=== PATIENT | female | born 1970 | race Hispanic/Latino ===

== ENCOUNTER 2021-03-10 10:18 | Inpatient (IN) | payer OTHER ==
[~2021-03-10] VITALS: Ht 160 cm; Wt 119.8 kg
[2021-03-10] MEDS ORDERED: ONDANSETRON 4MG INJ ONE (10:34)
[2021-03-10] MEDS ORDERED: 0.9%NACL 1000ML 1,000 ML IV ONE (10:35)
[2021-03-10 10:43] LABS: BASOPHILS % (AUTO) 0.2 % (0.0-5.0); HEMATOCRIT 41.2 % (36-48); LYMPHOCYTES % (AUTO) 5.8 % (21.0-51.0); MEAN CORPUSCULAR HEMOGLOBIN 30.8 pg (27.0-33.0); MEAN CORPUSCULAR HGB CONC 35.2 g/dL (32.0-36.0); MEAN CORPUSCULAR VOLUME 87.5 fL (79-99); MONOCYTES % (AUTO) 6.5 % (3.0-13.0); NEUTROPHILS % (AUTO) 86.9 % (40.0-77.0); PLATELET COUNT (AUTO) 270 K/uL (130-400); RED BLOOD CELL COUNT(AUTO) 4.71 MIL/uL (4.00-5.50); RED CELL DISTRIBUTION WIDTH 13.2 % (11.0-15.5); WHITE BLOOD COUNT (AUTO) 20.7 K/uL (4.8-10.8)
[2021-03-10] MEDS ORDERED: ZOSYN 3.375GM+NS 50ML 50 ML ONE (10:48)
[2021-03-10] MEDS ORDERED: 0.9%NACL 50ML 50 ML IV ONE (10:49)
[2021-03-10 10:51] LABS: CARBON DIOXIDE 24 mmol/L (21-32); CREATININE 0.9 mg/dL (0.5-1.5); GLOMERULAR FILTR. RATE CALC 70 mL/min (>60); GLUCOSE,RANDOM 133 mg/dL (70-105); POTASSIUM 3.7 mmol/L (3.5-5.1); SODIUM SERUM 126 mmol/L (136-145); UREA NITROGEN, BLOOD 9 mg/dL (7-18)
[2021-03-10 10:55] LABS: ALANINE AMINOTRANSFERASE 46 U/L (12-78); ALBUMIN 3.5 g/dL (3.5-5.0); ASPARTATE AMINOTRANSFERASE 22 U/L (10-37); BILIRUBIN,TOTAL 0.9 mg/dL (0.2-1.0); CHLORIDE 90 mmol/L (101-111)
[2021-03-10] MEDS ORDERED: ZOSYN IV SCH (11:00)
[2021-03-10] MEDS: ZOSYN 3.375GM+NS 50ML 50 ML IV SCH ×2 (11:00→20:28)
[2021-03-10] MEDS ORDERED: ONDANSETRON 4MG INJ IVP ONE (11:00)
[2021-03-10] MEDS ORDERED: LACTATED RINGERS 1000ML 1,000 ML IV ONE (11:00)
[2021-03-10] MEDS ORDERED: [UNRECOGNIZED DRUG - OTHER] IV SCH (11:00)
[2021-03-10 11:01] LABS: LIPASE < 50 U/L (114-286)
[2021-03-10 11:31] LABS: APPEARANCE,URINE Clear (CLEAR); BILIRUBIN,URINE Negative (NEGATIVE); COLOR,URINE Yellow (YELLOW); GLUCOSE, URINE (UA) Negative (NEGATIVE); KETONES,URINE Negative (NEGATIVE); LEUKOCYTE ESTERASE ,URINE Negative (NEGATIVE); NITRATE,URINE Negative (NEGATIVE); OCCULT BLOOD,URINE Moderate (NEGATIVE); PH,URINE 6.5 (5.0-8.0); PROTEIN,URINE POS 1+ mg/dL (NEGATIVE)
[2021-03-10 11:54] LABS: BACTERIA,URINE Rare /HPF (None Seen); SQUAMOUS EPITHELIAL CELL,UR Few /HPF (0-2); WBC,URINE None Seen /HPF (0-1)
[2021-03-10] MEDS ORDERED: 0.9%NACL 1000ML 1,000 ML IV SCH (13:00)
[2021-03-10] MEDS ORDERED: MORPHINE 4 MG SYG ONE (13:10)
[2021-03-10 13:16] LABS: CREATININE,URINE RANDOM 36 mg/dL (30-135); SODIUM,URINE RANDOM 17 mmol/l (40-220)
[2021-03-10] MEDS ORDERED: MORPHINE 2 MG SYG IVP PRN (13:30)
[2021-03-10 13:31] LABS: CREATININE 0.9 mg/dL (0.5-1.5); POTASSIUM 3.6 mmol/L (3.5-5.1)
[2021-03-10 13:34] LABS: URIC ACID 6.4 mg/dL (2.6-7.2)
[2021-03-10] MEDS ORDERED: LEVO50TA11 PO (14:37)
[2021-03-10] MEDS ORDERED: LISI5TAB21 PO (14:37)
[2021-03-10 18:45] VITALS: BP 154/87
[2021-03-10] MEDS ORDERED: ACETAMINOPHEN 325 MG TAB ONE (19:12)
[2021-03-10] MEDS ORDERED: ACETAMINOPHEN 325 MG TAB PO PRN (19:30)
[2021-03-10 20:19] VITALS: BP 131/89
[2021-03-10] MEDS ORDERED: SUCCINYLCHOLINE 200MG/10ML SYR ONE (22:20)
[2021-03-10] MEDS ORDERED: LIDOCAINE HCL MPF 1% 5ML VIAL ONE (22:20)
[2021-03-10] MEDS ORDERED: ROCURONIUM 10MG/1ML SYR 10 MG/ML ML ONE (22:21)
[2021-03-10] MEDS ORDERED: FENTANYL CITRATE PF 50 MCG/1 ML 2ML VIAL ONE (22:21)
[2021-03-10] MEDS ORDERED: PROPOFOL 10 MG/ML 20ML VIAL IV ONE (22:21)
[2021-03-10] MEDS ORDERED: MIDAZOLAM HCL 1 MG/ML 2ML VIAL ONE (22:21)
[2021-03-10] MEDS ORDERED: BUPIVACAINE/PF 0.5% 30ML VIAL ONE (22:43)
[2021-03-10] MEDS ORDERED: NEOSTIGMINE 5MG/5ML SYR IV ONE (23:53)
[2021-03-10] MEDS ORDERED: GLYCOPYRROLATE 1 MG/5 ML SYRINGE ONE (23:53)
[2021-03-11] VITALS (20 sets, daily range): BP systolic 112–147; BP diastolic 54–88
[2021-03-11] MEDS ORDERED: ONDANSETRON 4MG INJ IVP PRN (00:30)
[2021-03-11] MEDS ORDERED: MORPHINE 4 MG SYG IV PRN (00:30)
[2021-03-11] MEDS: TRAMADOL HCL 50 MG TABLET PO SCH ×5 (02:07→23:59)
[2021-03-11] MEDS: LACTATED RINGERS 1000ML 1,000 ML IV SCH ×6 (02:07→18:55)
[2021-03-11 04:06] LABS: BASOPHILS % (AUTO) 0.2 % (0.0-5.0); EOSINOPHILS % (AUTO) 1.4 % (0.0-8.0); LYMPHOCYTES % (AUTO) 4.9 % (21.0-51.0); MEAN CORPUSCULAR HEMOGLOBIN 30.8 pg (27.0-33.0); MEAN CORPUSCULAR HGB CONC 33.6 g/dL (32.0-36.0); MEAN CORPUSCULAR VOLUME 91.5 fL (79-99); MONOCYTES % (AUTO) 3.9 % (3.0-13.0); NEUTROPHILS % (AUTO) 89.1 % (40.0-77.0); PLATELET COUNT (AUTO) 232 K/uL (130-400); RED BLOOD CELL COUNT(AUTO) 4.26 MIL/uL (4.00-5.50); RED CELL DISTRIBUTION WIDTH 13.9 % (11.0-15.5)
[2021-03-11 04:31] LABS: ALBUMIN 2.6 g/dL (3.5-5.0); BILIRUBIN,TOTAL 1.1 mg/dL (0.2-1.0); CREATININE 1.2 mg/dL (0.5-1.5); THYROID STIMULATING HORMONE 1.06 uIU/mL (0.36-3.74); TOTAL PROTEIN, SERUM 6.6 g/dL (6.0-8.3); URIC ACID 6.1 mg/dL (2.6-7.2)
[2021-03-11] MEDS: ZOSYN 3.375GM+NS 50ML 50 ML IV SCH ×3 (06:04→21:17)
[2021-03-11 09:24] LABS: CREATININE,URINE RANDOM 141 mg/dL (30-135); SODIUM,URINE RANDOM 32 mmol/l (40-220)
[2021-03-11] MEDS ORDERED: FLU VACC QS2021-22(6MOS UP)/PF 60 MCG/0.5 ML ML IM ONE (12:00)
[2021-03-11] MEDS ORDERED: LACTATED RINGERS 1000ML 1,572 ML IV ONE (17:30)
[2021-03-11] MEDS: LEVOFLOXACIN 500 MG/D5W 100 ML 100 ML IV SCH (18:53)
[2021-03-11] MEDS: FAMOTIDINE 20MG VIAL IV SCH (18:55)
[2021-03-12] MEDS: KETOROLAC 15MG/ML VIAL (15MG/ML) IV PRN ×2 (04:13→21:43)
[2021-03-12 04:31] VITALS: BP 129/78
[2021-03-12 05:01] LABS: BASOPHILS % (AUTO) 0.1 % (0.0-5.0); EOSINOPHILS % (AUTO) 0.3 % (0.0-8.0); HEMATOCRIT 34.1 % (36-48); LYMPHOCYTES % (AUTO) 5.7 % (21.0-51.0); MEAN CORPUSCULAR HEMOGLOBIN 30.3 pg (27.0-33.0); MEAN CORPUSCULAR HGB CONC 33.4 g/dL (32.0-36.0); MEAN CORPUSCULAR VOLUME 90.7 fL (79-99); NEUTROPHILS % (AUTO) 89.3 % (40.0-77.0); PLATELET COUNT (AUTO) 209 K/uL (130-400); RED BLOOD CELL COUNT(AUTO) 3.76 MIL/uL (4.00-5.50); RED CELL DISTRIBUTION WIDTH 13.9 % (11.0-15.5); WHITE BLOOD COUNT (AUTO) 13.9 K/uL (4.8-10.8)
[2021-03-12 05:22] LABS: POTASSIUM 3.6 mmol/L (3.5-5.1)
[2021-03-12] MEDS: ZOSYN 3.375GM+NS 50ML 50 ML IV SCH ×3 (06:01→20:40)
[2021-03-12] MEDS: TRAMADOL HCL 50 MG TABLET PO SCH ×4 (06:02→23:33)
[2021-03-12 08:00] VITALS: BP 118/76
[2021-03-12] MEDS: FAMOTIDINE 20MG VIAL IV SCH (11:01)
[2021-03-12] MEDS: ENOXAPARIN SODIUM 40 MG/0.4 ML SYRINGE SQ SCH (11:02)
[2021-03-12] MEDS: 0.9%NACL 1000ML 1,000 ML IV SCH ×2 (11:08→18:30)
[2021-03-12 12:00] VITALS: BP 129/85
[2021-03-12 16:00] VITALS: BP 144/87
[2021-03-12] MEDS: LEVOFLOXACIN 500 MG/D5W 100 ML 100 ML IV SCH (17:10)
[2021-03-12 19:20] VITALS: BP 134/72
[2021-03-12 23:29] VITALS: BP 115/66
[2021-03-13] MEDS ORDERED: HYDROXYZINE 25 MG TABLET ONE (04:22)
[2021-03-13 04:29] VITALS: BP 123/69
[2021-03-13] MEDS ORDERED: LEVOTHYROXINE 50 MCG TABLET ONE (05:02)
[2021-03-13] MEDS: TRAMADOL HCL 50 MG TABLET PO SCH ×3 (05:05→20:18)
[2021-03-13] MEDS: ZOSYN 3.375GM+NS 50ML 50 ML IV SCH ×3 (05:05→20:18)
[2021-03-13] MEDS: 0.9%NACL 1000ML 1,000 ML IV SCH (05:05)
[2021-03-13 05:15] LABS: HEMATOCRIT 31.5 % (36-48); MEAN CORPUSCULAR HEMOGLOBIN 30.1 pg (27.0-33.0); MEAN CORPUSCULAR HGB CONC 32.7 g/dL (32.0-36.0); MEAN CORPUSCULAR VOLUME 92.1 fL (79-99); PLATELET COUNT (AUTO) 195 K/uL (130-400); RED BLOOD CELL COUNT(AUTO) 3.42 MIL/uL (4.00-5.50); RED CELL DISTRIBUTION WIDTH 13.6 % (11.0-15.5); WHITE BLOOD COUNT (AUTO) 8.4 K/uL (4.8-10.8)
[2021-03-13 05:32] LABS: CREATININE 0.9 mg/dL (0.5-1.5); POTASSIUM 3.4 mmol/L (3.5-5.1); URIC ACID 4.8 mg/dL (2.6-7.2)
[2021-03-13 05:33] LABS: BAND NEUTROPHILS % (MANUAL) 13 % (0-2); EOSINOPHILS % (MANUAL) 1 % (1-6); LYMPHOCYTES % (MANUAL) 7 % (22-44); MAN.DIFF COMMENT-IMPRESSION MANUAL DIFFERENTIAL; MONOCYTES % (MANUAL) 3 % (2-9); PLATELET MORPHOLOGY COMMENT ADEQUATE; REACTIVE LYMPHOCYTES 1 % (0-0); SEGMENTED NEUTROPHILS % 75 % (40-70)
[2021-03-13 05:52] LABS: CRP QUANTITATIVE 230.3 mg/L (0.00-9.0)
[2021-03-13] MEDS: LEVOTHYROXINE 50 MCG TABLET PO SCH (06:01)
[2021-03-13 08:00] VITALS: BP 161/85
[2021-03-13] MEDS: FAMOTIDINE 20MG TAB PO SCH ×2 (11:01→11:13)
[2021-03-13] MEDS: LISINOPRIL 5 MG TABLET PO SCH ×2 (11:01→11:13)
[2021-03-13] MEDS: KCL 20 MEQ ERTAB PO SCH ×3 (11:02→11:13)
[2021-03-13] MEDS: HYDROXYZINE 25 MG TABLET PO PRN ×2 (11:02→11:13)
[2021-03-13] MEDS: ENOXAPARIN SODIUM 40 MG/0.4 ML SYRINGE SQ SCH ×2 (11:03→11:14)
[2021-03-13 12:00] VITALS: BP 157/90
[2021-03-13 16:00] VITALS: BP 159/81
[2021-03-13] MEDS: LEVOFLOXACIN 500 MG/D5W 100 ML 100 ML IV SCH ×2 (16:55→16:56)
[2021-03-13 19:15] VITALS: BP 135/70
[2021-03-14] VITALS (7 sets, daily range): BP systolic 110–154; BP diastolic 65–97
[2021-03-14] MEDS: TRAMADOL HCL 50 MG TABLET PO SCH ×6 (00:30→23:22)
[2021-03-14 05:07] LABS: BASOPHILS % (AUTO) 0.3 % (0.0-5.0); EOSINOPHILS % (AUTO) 3.6 % (0.0-8.0); HEMATOCRIT 29.3 % (36-48); LYMPHOCYTES % (AUTO) 13.9 % (21.0-51.0); MEAN CORPUSCULAR HEMOGLOBIN 30.3 pg (27.0-33.0); MEAN CORPUSCULAR HGB CONC 33.4 g/dL (32.0-36.0); MEAN CORPUSCULAR VOLUME 90.7 fL (79-99); MONOCYTES % (AUTO) 8.2 % (3.0-13.0); NEUTROPHILS % (AUTO) 72.9 % (40.0-77.0); PLATELET COUNT (AUTO) 241 K/uL (130-400); RED BLOOD CELL COUNT(AUTO) 3.23 MIL/uL (4.00-5.50); RED CELL DISTRIBUTION WIDTH 13.9 % (11.0-15.5)
[2021-03-14 05:24] LABS: CREATININE 0.9 mg/dL (0.5-1.5); CRP QUANTITATIVE 167.3 mg/L (0.00-9.0)
[2021-03-14] MEDS: ZOSYN 3.375GM+NS 50ML 50 ML IV SCH ×3 (05:57→19:56)
[2021-03-14] MEDS: LEVOTHYROXINE 50 MCG TABLET PO SCH (05:58)
[2021-03-14] MEDS: KCL 20 MEQ ERTAB PO SCH ×2 (12:00→19:17)
[2021-03-14] MEDS ORDERED: FLU VACC QS2021-22(6MOS UP)/PF 60 MCG/0.5 ML ML IM ONE (12:56)
[2021-03-14] MEDS: LEVOFLOXACIN 500 MG/D5W 100 ML 100 ML IV SCH (17:41)
[2021-03-14] MEDS: METOPROLOL TARTRATE 25 MG TAB PO SCH (19:57)
[2021-03-15 03:17] VITALS: BP 108/72
[2021-03-15 04:55] LABS: HEMATOCRIT 30.4 % (36-48); MEAN CORPUSCULAR HEMOGLOBIN 30.4 pg (27.0-33.0); MEAN CORPUSCULAR HGB CONC 32.9 g/dL (32.0-36.0); MEAN CORPUSCULAR VOLUME 92.4 fL (79-99); PLATELET COUNT (AUTO) 244 K/uL (130-400); RED BLOOD CELL COUNT(AUTO) 3.29 MIL/uL (4.00-5.50); RED CELL DISTRIBUTION WIDTH 13.9 % (11.0-15.5); WHITE BLOOD COUNT (AUTO) 6.9 K/uL (4.8-10.8)
[2021-03-15 05:05] LABS: CRP QUANTITATIVE 119.7 mg/L (0.00-9.0); POTASSIUM 4.1 mmol/L (3.5-5.1)
[2021-03-15] MEDS: TRAMADOL HCL 50 MG TABLET PO SCH ×2 (05:38→12:41)
[2021-03-15] MEDS: ZOSYN 3.375GM+NS 50ML 50 ML IV SCH ×2 (05:38→12:42)
[2021-03-15] MEDS: LEVOTHYROXINE 50 MCG TABLET PO SCH (05:41)
[2021-03-15 05:44] LABS: BAND NEUTROPHILS % (MANUAL) 14 % (0-2); EOSINOPHILS % (MANUAL) 5 % (1-6); LYMPHOCYTES % (MANUAL) 23 % (22-44); MAN.DIFF COMMENT-IMPRESSION MANUAL DIFFERENTIAL; MONOCYTES % (MANUAL) 5 % (2-9); PLATELET MORPHOLOGY COMMENT ADEQUATE; REACTIVE LYMPHOCYTES 2 % (0-0); SEGMENTED NEUTROPHILS % 51 % (40-70)
[2021-03-15] MEDS ORDERED: METR500T PO (07:04)
[2021-03-15] MEDS ORDERED: LEVO500T90 PO (07:04)
[2021-03-15 07:49] VITALS: BP 144/84
[2021-03-15] MEDS: FAMOTIDINE 20MG TAB PO SCH (09:00)
[2021-03-15] MEDS: KCL 20 MEQ ERTAB PO SCH (12:00)
[2021-03-15 12:19] VITALS: BP 136/84
[2021-03-15] MEDS: ENOXAPARIN SODIUM 40 MG/0.4 ML SYRINGE SQ SCH (12:44)
[2021-03-15] MEDS: LISINOPRIL 5 MG TABLET PO SCH (12:45)
[2021-03-15] MEDS: METOPROLOL TARTRATE 25 MG TAB PO SCH (12:47)
== END 2021-03-15 14:55 | disposition home or self-care (01) | DRG 853 ==
LOC: EDH 10:18 → EDHIP 16:31 → OBSVTOIN 16:31 → 3AH 18:41
PROVIDERS: ADMIT Internal Medicine; ATTEND Internal Medicine
PROC: 0DTJ4ZZ Resection of Appendix, Percutaneous Endoscopic Approach (ICD-10-PCS; principal; 2021-03-10 22:51)
PROC: 3E02340 Introduction of Influenza Vaccine into Muscle, Percutaneous Approach (ICD-10-PCS; 2021-03-14)
DX: A41.9 Sepsis, unspecified organism (principal); E43 Unspecified severe protein-calorie malnutrition; K35.32 Acute appendicitis with perforation, localized peritonitis, and gangrene, without abscess; E87.1 Hypo-osmolality and hyponatremia; Z68.42 Body mass index [BMI] 45.0-49.9, adult; E66.01 Morbid (severe) obesity due to excess calories; E87.6 Hypokalemia; Z20.822 Contact with and (suspected) exposure to COVID-19; I10 Essential (primary) hypertension; E03.9 Hypothyroidism, unspecified; E86.0 Dehydration; E78.5 Hyperlipidemia, unspecified; D64.9 Anemia, unspecified; R56.9 Unspecified convulsions; K66.0 Peritoneal adhesions (postprocedural) (postinfection); Z23 Encounter for immunization; Z79.899 Other long term (current) drug therapy; Z90.5 Acquired absence of kidney; Z90.49 Acquired absence of other specified parts of digestive tract; Z82.49 Family history of ischemic heart disease and other diseases of the circulatory system
CPT/HCPCS: 36415; 74176; 80048; 80053; 81001; 82570; 83605; 83690; 83930; 83935; 84145; 84300; 84443; 84550; 85025; 85651; 86140; 87040; 87635; C9803; G0378; J0330; J1650; J1885; J1956; J2250; J2270; J2405; J2543; J2704; J2710; J3010; J3490; J7030; J7120; Q2035

== ENCOUNTER 2024-01-22 08:31 | Emergency (ER) | payer OTHER, BC ==
[~2024-01-22] VITALS: Ht 162.6 cm; Wt 99.8 kg
[~2024-01-22 08:31] MED LIST: LEVO-70 PO; LEVO50TA11 PO; LISI5TAB21 PO; METR500T PO
[2024-01-22] MEDS ORDERED: TRAM50TA4 PO (10:56)
[2024-01-22] MEDS: KETOROLAC 15MG/ML VIAL (15MG/ML) IM ONE (11:23)
[2024-01-22 12:09] VITALS: BP 166/89; PULSE 65; RESP 17; O2SAT 98
== END 2024-01-22 12:11 | disposition home or self-care (01) ==
LOC: EDH 08:31
DX: M54.2 Cervicalgia (principal); M54.9 Dorsalgia, unspecified; I10 Essential (primary) hypertension; E66.01 Morbid (severe) obesity due to excess calories; E03.9 Hypothyroidism, unspecified; Z68.37 Body mass index [BMI] 37.0-37.9, adult; Z79.899 Other long term (current) drug therapy; Z90.49 Acquired absence of other specified parts of digestive tract; Z98.890 Other specified postprocedural states; V89.2XXA Person injured in unspecified motor-vehicle accident, traffic, initial encounter; Y93.89 Activity, other specified; Y92.89 Other specified places as the place of occurrence of the external cause; Y99.8 Other external cause status
CPT/HCPCS: 99285; 72125; 72131; 72192; 72128; 96372; J1885